=== PATIENT | female | born 1945 | race Two or more races ===

== ENCOUNTER → 2021-03-18 08:00 | Outpatient (CLI) | payer OTHER ==
[~2021-03-18 08:00] MED LIST: GLUMETZA500 MG; IBESARTAN; NORVASC5 MG; SYNTHROID150 MCG; TOPROL XL50 M1
== END | disposition home or self-care (01) ==
LOC: LAB 08:00 → ADM 10:45 → CIR.AMB 03-25 07:00 → EDSTATUS 03-25 10:45 → CIR.AMB 03-25 10:45
PROVIDERS: ATTEND Obstetrics & Gynecology Gynecology
DX: N81.3 Complete uterovaginal prolapse (principal); N81.82 Incompetence or weakening of pubocervical tissue; N81.83 Incompetence or weakening of rectovaginal tissue; D64.89 Other specified anemias; D78.89 Other postprocedural complications of the spleen; D03.8 Melanoma in situ of other sites; Z20.822 Contact with and (suspected) exposure to COVID-19

== ENCOUNTER → 2021-03-25 06:18 | Outpatient (CLI) | payer OTHER | END | disposition home or self-care (01) | LOC: LAB 06:18 | PROVIDERS: ATTEND Obstetrics & Gynecology Gynecology | DX: Z20.828 Contact with and (suspected) exposure to other viral communicable diseases (principal) ==

== ENCOUNTER 2021-06-10 05:00 | Day surgery (SDC) | payer OTHER ==
[2021-06-10] MEDS ORDERED: MACROBID 100 M100 MG PO (09:22)
[2021-06-10] MEDS ORDERED: ULTRACET PO (09:22)
== END 2021-06-10 11:20 | disposition home or self-care (01) ==
LOC: CIR.AMB 05:00
PROVIDERS: ATTEND Obstetrics & Gynecology Gynecology
DX: N81.6 Rectocele (principal); N81.5 Vaginal enterocele